=== PATIENT | male | born 1990 | race Caucasian/White ===

== ENCOUNTER 2021-03-12 02:07 | Inpatient (IN) ==
[2021-03-12] MEDS ORDERED: 0.9 % SODIUM CHLORIDE 1,000 ML IV ONE ×2 (02:29)
[2021-03-12] MEDS ORDERED: ONDANSETRON 4 MG/2 ML VIAL IV ONE (02:33)
[2021-03-12 02:53] LABS: POC Calcium, Ionized 1.03 mmEq/L (1.16-1.32); POC Creatinine 0.7 mg/dL (0.6-1.2); POC Potassium 4.1 mEql/L (3.3-5.1)
--- NOTE | 2021-03-12 02:57 | Emergency Department Note ---
HPI General Chief complaint: Blood Sugar Problem Stated complaint: ran out of insulin Time Seen by Provider: 03/12/21 02:11 Source: patient Mode of arrival: EMS Limitations: no limitations History of Present Illness HPI Narrative: Narrative: Patient is a 31-year-old male with history of diabetes who presents with chief complaint of hyperglycemia. Patient states that he ran out of his insulin a few days ago, but not gotten it refilled yet. He has slowly been getting worse throughout the last day with increasing nausea, vomiting, and just not feeling well. He took the last of his Lantus this morning though it was not his full normal dose, and when he was unable to keep anything down this evening came in for further evaluation. Otherwise denies any other significant symptoms such as fever, headache, cough, shortness of breath, chest pain, hematemesis, abdominal pain, changes in bowel movements or urinary symptoms. Patient states this is happened before and he was in DKA. Related Data Home Medications Medication Instructions Recorded Confirmed Humalog U-100 Insulin 0 unit SUBCUT ACHS 03/12/21 03/12/21 insulin glargine 100 unit/mL 0 unit SUBCUT BID 03/12/21 03/12/21 subcutaneous cartridge Allergies Allergy/AdvReac Type Severity Reaction Status Date / Time No Known Drug Allergies Allergy Unverified 03/12/21 02:19 Review of Systems ROS ROS Narrative: Narrative: All systems ED: reviewed and negative except as stated. PFSH Narrative Patient History Narrative: Narrative: Medical/Surgical/Family History All Active Problems (Updated 03/12/21 @ 03:15 by Dutch Grewal DO) DKA (diabetic ketoacidosis) (Acute) Social History Smoking Status: Current every day smoker Exam Narrative Narrative: Narrative: Patient is lying in bed, answering questions normally and appropriately. He does not appear to be in acute distress but does appear to feel unwell. General Limitations: no limitations Head Head: Present atraumatic and normocephalic Eye Eye: Present normal appearance, PERRL and EOMI; Absent scleral icterus or conjunctival injection ENT ENT: Present normal oropharynx and mucous membranes moist Neck Neck: Present full ROM and trachea midline; Absent tenderness or lymphadenopathy Chest Chest: Present symmetric chest wall rise Respiratory Respiratory: Present normal lung sounds bilaterally; Absent respiratory distress, rales/crackles, wheezes, stridor or accessory muscle use Cardiovascular Cardiovascular: Present normal rhythm and tachycardia; Absent systolic murmur or diastolic murmur Adbominal Abdominal: Present soft; Absent tenderness, guarding, rebound, rigidity or mass Extremities Extremities: Absent pedal edema, pretibial edema or calf tenderness Back Back: Absent CVA tenderness (R), CVA tenderness (L) or spinous process tenderness Neurological Neurological: Present alert and oriented X3 Psychiatric Psychiatric: Present normal affect and normal mood Skin Skin: Present warm (WNL) and dry Course Vital Signs Vital signs: Vital Signs Temperature 97.6 F 03/12/21 02:10 Pulse Rate 92 H 03/12/21 02:10 Respiratory Rate 22 03/12/21 02:10 Pulse Oximetry (%) 100 03/12/21 02:10 Temperature 97.6 F 03/12/21 02:10 Pulse Rate 92 H 03/12/21 02:10 Respiratory Rate 22 03/12/21 02:10 Pulse Oximetry (%) 100 03/12/21 02:10 MDM MDM Narrative Medical decision making narrative: Narrative: Patient is a 31-year-old male presented with chief complaint of hyperglycemia. Patient history and physical exam concerning for possible DKA, and it does appear that he is in it. Patient has a pH of 7.25, ketones in his urine, and high blood sugar in the 400s on our initial testing here. This is consistent with DKA, and he was started on 2 L of normal saline bolus, potassium rep lacement, and insulin drip. Patient was also given Zofran to improve his nausea and vomiting symptoms. I discussed with him the findings, as well as my desire to admit him to the hospital for continued close monitoring due to his severe illness. Patient is agreeable to the plan at this time is no further concerns or questions. I did discuss case with hospitalist, who agrees the plan of admission at this time. 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) Follow up with: Herlinda Dunn [Primary Care Provider] - Prescriptions: No Action Lantus U-100 Insulin 100 unit/mL Cartridge 0 unit SUBCUT BID 0RF Rx Instructions: 10 UNITS IN THE A.M. AND 14 UNITS P.M Humalog U-100 Insulin 0 unit subcut ACHS 0RF
[2021-03-12] MEDS ORDERED: INSULIN REGULAR, HUMAN 50 UNIT in 0.9 % SODIUM CHLORIDE 99.5 ML IV SCH (03:00)
[2021-03-12] MEDS ORDERED: POTASSIUM CHLORIDE 40 MEQ in DEXTROSE 5% IN WATER 500 ML IV ONE (03:00)
[2021-03-12] MEDS ORDERED: ONDANSETRON 4 MG/2 ML VIAL IV PRN (03:10)
[2021-03-12] MEDS ORDERED: 0.9 % SODIUM CHLORIDE 1,000 ML IV SCH (03:15)
[2021-03-12] MEDS ORDERED: POTASSIUM CHLORIDE 20 MEQ/10 ML VIAL IV ONE (03:19)
[2021-03-12 03:36] LABS: Basophils # (Auto) 0.14 K/mcL (0.00-0.30); Basophils % (Auto) 0.6 % (0.0-2.0); Eosinophils # (Auto) 0.17 K/mcL (0.00-0.70); Eosinophils % (Auto) 0.8 % (0.0-7.0); Hematocrit 44.3 % (40.1-51.0); Hemoglobin 15.7 g/dL (13.7-17.5); Lymphocytes # (Auto) 3.28 K/mcL (1.50-4.80); Mean Corpuscular HGB Conc 35.4 g/dL (31.0-36.0); Mean Platelet Volume 11.3 fL (7.4-10.4); Monocytes # (Auto) 1.35 K/mcL (0.10-0.90); Monocytes % (Auto) 6.2 % (1.0-12.0); Neutrophils % (Auto) 77.4 % (38.0-78.0); Platelet Count 226 K/mcL (140-440); RBC 4.87 M/mcL (4.63-6.08); Red Cell Distribution Width 11.1 % (11.5-14.5); WBC 21.8 K/mcL (4.5-11.0)
[2021-03-12] MEDS ORDERED: INSULIN REGULAR, HUMAN 1 UNIT/0.01 ML UNIT IV ONE (03:46)
[2021-03-12 03:48] LABS: ALT/SGPT 95 U/L (<40); AST/SGOT 57 U/L (<40); Albumin 4.6 gm/dL (3.2-5.2); Albumin/Globulin Ratio 1.9 (1.0-2.3); Alkaline Phosphatase 72 U/L (39-117); Beta Hydroxybutyrate 4.06 mmol/L (<0.27); Bilirubin,Total 0.8 mg/dL (0.1-1.0); Blood Urea Nitrogen 19 mg/dL (6-20); Calcium 8.8 mg/dL (8.6-10.4); Carbon Dioxide 13 mmol/L (22-30); Chloride 93 mmol/L (96-108); Globulin 2.4 gm/dL (2.2-3.7); Glomerular Filtration Rate 113; Glucose 408 mg/dL (70-105)
[2021-03-12] MEDS ORDERED: ACETAMINOPHEN 325 MG TABLET PO PRN (03:58)
[2021-03-12] MEDS ORDERED: PROMETHAZINE 25 MG/ML VIAL IV PRN (03:58)
--- NOTE | 2021-03-12 04:09 | Internal Med History&Physical ---
HPI History of Present Illness Patient information: Note initiated : 03/12/21 at 4:09 am Service Date, if different from initiated Date: [] Patient: Chet Hernandez a 31 y/o M admitted on for ran out of insulin. Chief Complaint: [DKA] Chief complaint: ran out of insulin History of present illness: Mr. Hernandez is a 31 year old M history of type 1 diabetes mellitus, presenting with general body weakness, nausea, vomiting, admits to ran out of insulin for 2 days. No prior recent similar episode. He is supposed to take insulin Lantus 10 units in the morning and 14 units at bedtime, in addition to Humalog mealtime insulin sliding scale. He ran out of his insulin for the past 2 days. Is currently complaining of general body weakness, nausea, vomiting. He denies any abdominal pain. Vital signs at ED presentation significant for tachycardia with heart rate in the 110s beats per minute. Labs significant for serum glucose level 408. Serum bicarb 13. Positive for serum ketone. Serum anion gap 25. Constitutional Constitutional: Present weakness; Absent chills, excessive sweating, fatigue or fever(s) EENT Eyes: Absent blurry vision, change in vision, loss of vision or other visual disturbances Ears: Absent decreased hearing or tinnitus Nose, mouth and throat: Absent abnormal hearing, dry mouth, headache(s), nasal congestion or sore throat Cardiovascular Cardiovascular: Absent chest pain, chest pain at rest, edema, irregular heart rhythm or palpatations Respiratory Respiratory: Absent cough, dyspnea or wheezing Gastrointestinal Gastrointestinal: Present nausea and vomiting; Absent abdominal pain, constipation or diarrhea Musculoskeletal Musculoskeletal: Absent back pain, deformity, limited range of motion, muscle cramps, muscle weakness or numbness Integumentary Integumentary: Absent lesions, rash or wounds Neurological Neurological: Absent focal weakness, headache(s) or numbness Psychiatric Psychiatric: Absent anxiety, depression or hallucinations PFSH PFSH All Active Problems (Updated 03/12/21 @ 04:13 by Ermias Ferguson MD) DKA, type 1 (Acute) Cigarette smoker (Acute) DKA (diabetic ketoacidosis) (Acute) MEDS/ALLERGIES Home Medications and Allergies Home Medications Medication Instructions Recorded Confirmed Type Humalog U-100 Insulin 0 unit SUBCUT ACHS 03/12/21 03/12/21 History insulin glargine 100 unit/mL 0 unit SUBCUT BID 03/12/21 03/12/21 History subcutaneous cartridge Allergies Allergy/AdvReac Type Severity Reaction Status Date / Time No Known Drug Allergies Allergy Unverified 03/12/21 02:19 EXAM Constitutional Vitals: Temp Pulse Resp BP Pulse Ox 36.4 C 111 H 22 149/88 99 03/12/21 02:10 03/12/21 02:31 03/12/21 02:10 03/12/21 02:31 03/12/21 02:31 General appearance: average body habitus, cooperative, disheveled and mild distress Head Head exam: Present atraumatic and normocephalic Eye Eye exam: Present EOMI and PERRL ENT ENT exam: Present mucous membranes moist, normal exam and normal external ear exam Neck Neck exam: Present normal inspection; Absent lymphadenopathy, tenderness or thyromegaly Respiratory Respiratory exam: Absent accessory muscle use, respiratory distress or wheezes Cardiovascular Cardiovascular exam: Present normal rate and rhythm; Absent JVD GI/Abdominal GI/Abdominal exam: Present normal bowel sounds and soft; Absent organomegaly or tenderness Rectal Rectal exam: Present deferred Extremities Exam Extremities exam: Present full ROM, normal capillary refill and normal inspection; Absent tenderness Neurological Exam Neurological exam: Present alert, CN II-XII intact and oriented X3; Absent motor sensory deficit Psychiatric Psychiatric exam: Present normal affect and normal mood; Absent anxious or depressed Skin Skin exam: Present dry and intact DATA Data Completed and Pending Labs: Labs from last 24 hours 03/12/21 03/12/21 03/12/21 02:40 02:40 02:40 WBC 21.8 H RBC 4.87 Hgb 15.7 Hct 44.3 POC Hct MCV 91.0 MCH 32.2 MCHC 35.4 RDW 11.1 L Plt Count 226 MPV 11.3 H Neut % (Auto) 77.4 Lymph % (Auto) 15.0 L [place] % (Auto) 6.2 Eos % (Auto) 0.8 Baso % (Auto) 0.6 Lymph # (Auto) 3.28 [place] # (Auto) 1.35 H Eos # (Auto) 0.17 Baso # (Auto) 0.14 Absolute Neutrophils 16.88 H POC Sodium Sodium 131 L POC Potassium Potassium 4.3 POC Chloride Chloride 93 L Carbon Dioxide 13 L POC Total CO2 Anion Gap 25.0 H POC BUN BUN 19 Creatinine 0.9 POC Creatinine GFR Calculation 113 Glucose 408 H POC Glucose Calcium 8.8 POC WB Ioniz Calcium Total Bilirubin 0.8 AST 57 H ALT 95 H Alkaline Phosphatase 72 Total Protein 7.0 Albumin 4.6 Globulin 2.4 Albumin/Globulin Ratio 1.9 Beta-Hydroxybutyrate 4.06 H 03/12/21 02:40 WBC RBC Hgb Hct POC Hct 48 MCV MCH MCHC RDW Plt Count MPV Neut % (Auto) Lymph % (Auto) [place] % (Auto) Eos % (Auto) Baso % (Auto) Lymph # (Auto) [place] # (Auto) Eos # (Auto) Baso # (Auto) Absolute Neutrophils POC Sodium 132 L Sodium POC Potassium 4.1 Potassium POC Chloride 101 Chloride Carbon Dioxide POC Total CO2 17 L Anion Gap POC BUN 26 H BUN Creatinine POC Creatinine 0.7 GFR Calculation Glucose POC Glucose 406 H Calcium POC WB Ioniz Calcium 1.03 L Total Bilirubin AST ALT Alkaline Phosphatase Total Protein Albumin Globulin Albumin/Globulin Ratio Beta-Hydroxybutyrate A/P Assessment and plan (1) Cigarette smoker: Status: Acute (2) DKA, type 1: Status: Acute Narrative A/P Narrative: Assessment and Plans: 1. 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 Current cigarette smoker: Nicotine replacement therapy GI ppx: not currently indicated DVT ppx: Lovenox Code status: Full Prognosis: guarded Disposition: inpatient ICU Critical Care Time: 1hr Time Spent With Patient Time: Total time spent is greater than 50% in coordination of care (as documented) at patient's floor/unit and/or counseling patient: Total time spent with greater than 50% in coordination of care (as documented) at patient's floor/unit and/or counseling patient:: Greater than 35 minutes
[2021-03-12] MEDS: NACL 0.9% W/KCL 20MEQ 1,000 ML IV SCH ×3 (05:08→13:52)
[2021-03-12] MEDS: 0.9 % SODIUM CHLORIDE 10 ML SYRINGE IV SCH ×5 (05:59→22:26)
[2021-03-12 06:27] LABS: Basophils % (Auto) 0.4 % (0.0-2.0); Eosinophils # (Auto) 0.02 K/mcL (0.00-0.70); Eosinophils % (Auto) 0.1 % (0.0-7.0); Hematocrit 38.9 % (40.1-51.0); Hemoglobin 13.3 g/dL (13.7-17.5); Lymphocytes # (Auto) 1.11 K/mcL (1.50-4.80); Lymphocytes % (Auto) 4.6 % (15.5-49.0); Mean Cell Volume 91.1 fL (80.0-100.0); Mean Corpuscular HGB Conc 34.2 g/dL (31.0-36.0); Mean Platelet Volume 10.3 fL (7.4-10.4); Monocytes # (Auto) 1.33 K/mcL (0.10-0.90); Monocytes % (Auto) 5.5 % (1.0-12.0); Neutrophils % (Auto) 89.4 % (38.0-78.0); Platelet Count 227 K/mcL (140-440); RBC 4.27 M/mcL (4.63-6.08); Red Cell Distribution Width 11.4 % (11.5-14.5); WBC 24.2 K/mcL (4.5-11.0)
[2021-03-12] MEDS: DEXTROSE 5%-1/2NS W/20MEQ KCL 1,000 ML IV SCH ×4 (06:30→16:21)
[2021-03-12 06:51] LABS: Estimated Average Glucose(eAG) 192 mg/dL; Hemoglobin A1C 8.3 % Hgb (4.0-6.0)
[2021-03-12 07:03] LABS: ALT/SGPT 77 U/L (<40); AST/SGOT 41 U/L (<40); Albumin 3.9 gm/dL (3.2-5.2); Albumin/Globulin Ratio 1.8 (1.0-2.3); Alkaline Phosphatase 60 U/L (39-117); Bilirubin,Total 0.5 mg/dL (0.1-1.0); Blood Urea Nitrogen 19 mg/dL (6-20); Calcium 8.1 mg/dL (8.6-10.4); Carbon Dioxide 15 mmol/L (22-30); Chloride 103 mmol/L (96-108); Globulin 2.2 gm/dL (2.2-3.7); Glomerular Filtration Rate 113; Glucose 245 mg/dL (70-105)
[2021-03-12] MEDS ORDERED: 0.9 % SODIUM CHLORIDE 250 ML IV SCH (08:15)
[2021-03-12] MEDS: DOCUSATE SODIUM 100 MG CAPSULE PO SCH ×2 (08:36→22:25)
[2021-03-12] MEDS ORDERED: SENNOSIDES 8.8 MG/5 ML ML PT SCH (09:00)
[2021-03-12] MEDS ORDERED: ENOXAPARIN 40 MG/0.4 ML SYRINGE SQ SCH (09:00)
[2021-03-12] MEDS ORDERED: NICOTINE 21 MG PATCH TOPICAL SCH (10:00)
[2021-03-12 11:13] LABS: Blood Urea Nitrogen 16 mg/dL (6-20); Calcium 8.1 mg/dL (8.6-10.4); Carbon Dioxide 18 mmol/L (22-30); Chloride 103 mmol/L (96-108); Glomerular Filtration Rate 119; Glucose 204 mg/dL (70-105)
[2021-03-12 15:50] LABS: Blood Urea Nitrogen 12 mg/dL (6-20); Calcium 8.4 mg/dL (8.6-10.4); Carbon Dioxide 22 mmol/L (22-30); Chloride 102 mmol/L (96-108); Glomerular Filtration Rate 119; Glucose 230 mg/dL (70-105)
[2021-03-12] MEDS: INSULIN GLARGINE, HUMAN 1 UNIT/0.01 ML SQ SCH ×2 (16:10→22:26)
[2021-03-12] MEDS ORDERED: DEXTROSE 31 GM ORAL.SUSP PO PRN (16:17)
[2021-03-12] MEDS ORDERED: DEXTROSE 50% 50 ML VIAL IV PRN (16:17)
[2021-03-12 17:07] LABS: Blood Urea Nitrogen 11 mg/dL (6-20); Calcium 8.1 mg/dL (8.6-10.4); Carbon Dioxide 21 mmol/L (22-30); Chloride 107 mmol/L (96-108); Glomerular Filtration Rate 126; Glucose 126 mg/dL (70-105)
[2021-03-12] MEDS: INSULIN LISPRO 1 UNIT/0.01 ML UNIT SQ SCH ×2 (17:43→22:26)
[2021-03-12] MEDS ORDERED: SENNOSIDES/DOCUSATE SODIUM 1 TAB TABLET PO SCH (21:00)
--- NOTE | 2021-03-13 08:34 | Discharge Summary ---
Discharge Provider Provider Patient information: Note initiated : 03/13/21 at 8:33 am Service Date, if different from initiated Date: [] Patient: Chet Hernandez 31 y/o M admitted on 03/12/21 for Ran Out Of Insulin. Chief Complaint: [] Date of admission: 03/12/21 04:19 Discharge date: 03/12/21 Primary care physician: Herlinda Dunn Attending physician on admission: Ermias Ferguson Consults: 03/12/21 Consult to Physician [CONS] Stat Comment: Consulting Provider: Ermias Ferguson Reason For Exam: Physician to Consult Attending physician on discharge: Ermias Glover Pui Discharge Meds Discharge Medications Home Medications Humalog U-100 Insulin 0 unit SUBCUT ACHS 03/12/21 [History Confirmed 03/12/21 Last Taken 03/11/21 08:00] insulin glargine 100 unit/mL subcutaneous cartridge 0 unit SUBCUT BID 03/12/21 [History Confirmed 03/12/21 Last Taken 03/11/21] COURSE Hospital Course Hospital course: Admitted on 03/12 for DKA. Left AMA the same day. Discharge diagnosis: DKA Time Spent with Patient Time attestation: Total time spent providing and/or coordinating discharge services: Time spent: Greater than 30 minutes EXAM Constitutional Vitals: Temp Pulse Resp BP Pulse Ox 37.5 C H 71 21 121/67 99 03/12/21 20:00 03/12/21 20:00 03/12/21 20:00 03/12/21 20:00 03/12/21 20:00 General appearance: cooperative and no acute distress Head Head exam: Present atraumatic and normocephalic Eye Eye exam: Present EOMI and PERRL ENT ENT exam: Present mucous membranes moist, normal exam and normal external ear exam Neck Neck exam: Present normal inspection; Absent lymphadenopathy, tenderness or thyromegaly Respiratory Respiratory exam: Absent accessory muscle use, respiratory distress or wheezes Cardiovascular Cardiovascular exam: Present normal rate and rhythm; Absent JVD GI/Abdominal GI/Abdominal exam: Present normal bowel sounds and soft; Absent organomegaly or tenderness Rectal Rectal exam: Present deferred Extremities Exam Extremities exam: Present full ROM, normal capillary refill and normal inspection; Absent tenderness Neurological Exam Neurological exam: Present alert, CN II-XII intact and oriented X3; Absent motor sensory deficit Psychiatric Psychiatric exam: Present normal affect and normal mood; Absent anxious or depressed Skin Skin exam: Present dry and intact Discharge Data Data Completed and Pending Labs on day of discharge: Labs from last 24 hours 03/12/21 03/12/21 03/12/21 16:03 12:28 07:58 Sodium 138 135 136 Potassium 4.1 4.4 4.6 Chloride 107 102 103 Carbon Dioxide 21 L 22 18 L Anion Gap 10.0 11.0 15.0 BUN 11 12 16 Creatinine 0.7 0.8 0.8 GFR Calculation 126 119 119 Glucose 126 H 230 H 204 H Calcium 8.1 L 8.4 L 8.1 L Discharge Plan Patient/Caregiver Discharge Instructions Activity: increase activity as tolerated Diet: Consistent Carbohydrate Prescriptions: Continued insulin glargine 100 unit/mL Cartridge 0 unit SUBCUT BID 0RF Rx Instructions: 10 UNITS IN THE A.M. AND 14 UNITS P.M Humalog U-100 Insulin 0 unit subcut ACHS 0RF Follow Up Plan Follow up with: Herlinda Dunn [Primary Care Provider] - Patient Disposition: Left Against Medical Advice Prognosis: Good Rehab Potential: Good I certify that the patient requires SNF services: No Overall status at discharge: patient is progressing back to baseline Discharge Orders: Discharge Order (Routine); Ordered 03/12/21 Ordered By: Ermias Ferguson Discharge Comment: Patient walked home QUALITY VTE Deep Vein Thrombosis/Pulmonary Embolism Present on Admission: No
[2021-03-13] MEDS ORDERED: INSULIN GLARGINE, HUMAN 1 UNIT/0.01 ML SQ SCH (09:00)
== END 2021-03-12 21:40 | disposition left against medical advice (07) | DRG 639 ==
LOC: ED 02:07 → ICU 04:14
PROVIDERS: ADMIT Internal Medicine; ATTEND Internal Medicine

== ENCOUNTER 2024-01-24 10:11 | Inpatient (IN) ==
[2024-01-24] MEDS ORDERED: IOPAMIDOL 100 ML BOTTLE IV ONE (10:12)
[2024-01-24] MEDS: LACTATED RINGERS 1,000 ML IV ONE ×2 (10:31→12:18)
[2024-01-24] MEDS: ONDANSETRON 4 MG/2 ML VIAL IV ONE ×2 (10:31→12:18)
[2024-01-24 10:40] LABS: Basophils # (Auto) 0.08 K/mcL (0.00-0.30); Basophils % (Auto) 0.9 % (0.0-2.0); Eosinophils % (Auto) 2.2 % (0.0-7.0); Hematocrit 44.7 % (40.1-51.0); Hemoglobin 14.6 g/dL (13.7-17.5); Lymphocytes # (Auto) 2.35 K/mcL (1.50-4.80); Lymphocytes % (Auto) 25.4 % (15.5-49.0); Mean Corpuscular HGB Conc 32.7 g/dL (31.0-36.0); Monocytes # (Auto) 0.75 K/mcL (0.10-0.90); Monocytes % (Auto) 8.1 % (1.0-12.0); Neutrophils % (Auto) 62.3 % (38.0-78.0); Platelet Count 278 K/mcL (140-440); RBC 4.56 M/mcL (4.63-6.08); WBC 9.3 K/mcL (4.5-11.0)
[2024-01-24] MEDS: INSULIN REGULAR, HUMAN 1 UNIT/0.01 ML UNIT IV ONE ×3 (11:08→17:31)
[2024-01-24 11:13] LABS: ALT/SGPT 575 U/L (<40); AST/SGOT 255 U/L (<40); Albumin 4.1 gm/dL (3.2-5.2); Albumin/Globulin Ratio 1.4 (1.0-2.3); Alkaline Phosphatase 239 U/L (39-117); Bilirubin,Total 0.3 mg/dL (0.1-1.0); Blood Urea Nitrogen 23 mg/dL (6-20); Calcium 8.8 mg/dL (8.6-10.4); Carbon Dioxide 7 mmol/L (22-30); Chloride 90 mmol/L (96-108); Glomerular Filtration Rate 111; Glucose 556 mg/dL (70-105); Sodium 130 mmol/L (133-145)
[2024-01-24 12:56] LABS: Appearance,Urine Clear (Clear); Bilirubin,Urine Negative (Negative); Color,Urine Yellow; Glucose,Urine (UA) 500 mg/dL (Negative); Ketones,Urine >=160 mg/dL (Negative); Leukocyte Esterase,Urine Negative /uL (Negative); Nitrate,Urine Negative (Negative); PH,Urine 5.5 (5.0-9.0); Protein,Urine Negative (Negative); Specific Gravity,Urine 1.025 (1.000-1.035); Urine Blood Negative ery/mcL (Negative); Urine RBC 0 /hpf (0-3); Urine Squamous Epithelial Cell 0 /hpf (0-4); Urine WBC 0 /hpf (0-4); Urobilinogen,Urine Normal
[2024-01-24 14:24] LABS: ALT/SGPT 514 U/L (<40); AST/SGOT 200 U/L (<40); Albumin 3.9 gm/dL (3.2-5.2); Albumin/Globulin Ratio 1.4 (1.0-2.3); Alkaline Phosphatase 222 U/L (39-117); Bilirubin,Total 0.2 mg/dL (0.1-1.0); Blood Urea Nitrogen 19 mg/dL (6-20); Calcium 8.5 mg/dL (8.6-10.4); Carbon Dioxide 8 mmol/L (22-30); Chloride 92 mmol/L (96-108); Globulin 2.8 gm/dL (2.2-3.7); Glomerular Filtration Rate 117; Glucose 422 mg/dL (70-105); Potassium 4.9 mmol/L (3.3-5.1); Sodium 129 mmol/L (133-145)
[2024-01-24] MEDS: MAG HYDROX/AL HYDROX/SIMETH 30 ML ORAL.SUSP PO ONE (14:34)
[2024-01-24 15:10] LABS: Phosphorous 3.8 mg/dL (2.5-4.5)
[2024-01-24] MEDS: INSULIN REGULAR, HUMAN 50 UNIT in 0.9 % SODIUM CHLORIDE 99.5 ML IV SCH (15:20)
[2024-01-24] MEDS ORDERED: POTASSIUM CHLORIDE 40 MEQ in DEXTROSE 5% IN WATER 500 ML IV PRN (15:49)
[2024-01-24] MEDS ORDERED: MAGNESIUM SULFATE 2 GM/50 ML BAG IV PRN (15:49)
[2024-01-24] MEDS ORDERED: METOCLOPRAMIDE 10 MG/2 ML VIAL IV PRN (15:49)
[2024-01-24] MEDS ORDERED: SENNOSIDES 1 TABLET PO PRN (15:49)
[2024-01-24] MEDS ORDERED: POLYETHYLENE GLYCOL 3350 17 GM PACKET PO PRN (15:49)
[2024-01-24] MEDS ORDERED: ONDANSETRON 4 MG/2 ML VIAL IV PRN (15:49)
[2024-01-24] MEDS ORDERED: IPRATROPIUM/ALBUTEROL 3 ML AMPUL.NEB NEB PRN (15:49)
[2024-01-24] MEDS ORDERED: POTASSIUM CHLORIDE 20 MEQ TABLET PO PRN (15:49)
[2024-01-24] MEDS ORDERED: ACETAMINOPHEN 325 MG TABLET PO PRN (15:52)
[2024-01-24 16:00] LABS: Amphetamine Screen,Urine Suspect positive; Barbiturate Screen,Urine None detected; Benzodiazepines Screen,Urine None detected; Cannabinoid Screen,Urine None detected; Cocaine Screen,Urine None detected; Fentanyl, Urine Screen None Detected; Opiate Screen,Urine None detected; Oxycodone, Urine Screen None detected; Phencyclidine Screen,Urine None detected
[2024-01-24] MEDS: 0.9 % SODIUM CHLORIDE 1,000 ML IV SCH (16:04)
[2024-01-24 16:29] LABS: Hemoglobin A1C 13.5 % Hgb (4.0-6.0)
[2024-01-24] MEDS: INSULIN REGULAR, HUMAN 1 UNIT/0.01 ML UNIT ONE (16:42)
[2024-01-24] MEDS: DEXTROSE 5%-1/2NS 1,000 ML IV SCH ×2 (18:05→22:09)
[2024-01-24] MEDS: 0.9 % SODIUM CHLORIDE 250 ML IV SCH (18:06)
[2024-01-24] MEDS ORDERED: DEXTROSE 50% 50 ML VIAL IV PRN (20:11)
[2024-01-24] MEDS: DEXTROSE 50% 50 ML SYRINGE IV ONE (20:19)
[2024-01-25 06:28] LABS: ALT/SGPT 358 U/L (<40); AST/SGOT 114 U/L (<40); Albumin 3.3 gm/dL (3.2-5.2); Albumin/Globulin Ratio 1.4 (1.0-2.3); Alkaline Phosphatase 176 U/L (39-117); Bilirubin,Direct < 0.2 mg/dL (0-0.3); Bilirubin,Total 0.2 mg/dL (0.1-1.0); Blood Urea Nitrogen 12 mg/dL (6-20); Calcium 8.2 mg/dL (8.6-10.4); Carbon Dioxide 18 mmol/L (22-30); Chloride 105 mmol/L (96-108); Globulin 2.4 gm/dL (2.2-3.7); Glomerular Filtration Rate 123; Glucose 138 mg/dL (70-105); Lactate Dehydrogenase 163 U/L (135-225); Phosphorous 1.9 mg/dL (2.5-4.5); Potassium 3.3 mmol/L (3.3-5.1); Sodium 135 mmol/L (133-145); Triglycerides 207 mg/dL (<150); Uric Acid 5.6 mg/dL (2.5-8.0)
[2024-01-25] MEDS: DEXTROSE 50% 50 ML SYRINGE IV ONE (06:31)
[2024-01-25 06:37] LABS: Beta Hydroxybutyrate 0.44 mmol/L (<0.27)
[2024-01-25] MEDS: POTASSIUM CHLORIDE 20 MEQ TABLET PO PRN (07:57)
[2024-01-25] MEDS ORDERED: DEXTROSE 50% 50 ML VIAL IV PRN (08:22)
[2024-01-25] MEDS ORDERED: DEXTROSE 31 GM ORAL.SUSP PO PRN (08:22)
[2024-01-25] MEDS: INSULIN GLARGINE, HUMAN 1 UNIT/0.01 ML SQ SCH (08:42)
[2024-01-25] MEDS: NEUTRA PHOS 1 PACKET PO SCH (08:43)
[2024-01-25] MEDS: ENOXAPARIN 40 MG/0.4 ML SYRINGE SQ SCH (08:43)
[2024-01-25] MEDS: PHOSPHORUS 250 MG TABLET PO SCH (08:43)
[2024-01-25] MEDS: SODIUM BICARBONATE 650 MG TABLET PO SCH (08:43)
[2024-01-25] MEDS: INSULIN LISPRO 1 UNIT/0.01 ML UNIT SQ SCH (12:02)
[2024-01-30 07:12] LABS: Amphetamine Screen Negative (Cutoff=500)
== END 2024-01-25 15:00 | disposition left against medical advice (07) | DRG 637 ==
LOC: ED 10:11 → ICU 15:45
PROVIDERS: ADMIT Internal Medicine; ATTEND Internal Medicine

== ENCOUNTER 2024-06-05 13:56 | Inpatient (IN) ==
[2024-06-05] MEDS: ONDANSETRON 4 MG/2 ML VIAL IV ONE (14:50)
[2024-06-05 14:51] LABS: Basophils # (Auto) 0.07 K/mcL (0.00-0.30); Basophils % (Auto) 0.5 % (0.0-2.0); Eosinophils # (Auto) 0.01 K/mcL (0.00-0.70); Eosinophils % (Auto) 0.1 % (0.0-7.0); Hematocrit 51.6 % (40.1-51.0); Hemoglobin 16.8 g/dL (13.7-17.5); Lymphocytes # (Auto) 1.38 K/mcL (1.50-4.80); Lymphocytes % (Auto) 9.4 % (15.5-49.0); Mean Corpuscular HGB Conc 32.6 g/dL (31.0-36.0); Mean Platelet Volume 9.5 fL (8.8-12.5); Monocytes # (Auto) 0.62 K/mcL (0.10-0.90); Monocytes % (Auto) 4.2 % (1.0-12.0); Neutrophils % (Auto) 83.3 % (38.0-78.0); Platelet Count 343 K/mcL (140-440); RBC 5.16 M/mcL (4.63-6.08); Red Cell Distribution Width 13.1 % (11.5-14.5); WBC 14.7 K/mcL (4.5-11.0)
[2024-06-05 15:08] LABS: Alcohol, Blood < 10.1 mg/dL; Alcohol,Blood < 0.010 gm/dL (<0.010)
[2024-06-05 15:10] LABS: ALT/SGPT 302 U/L (<40); AST/SGOT 75 U/L (<40); Albumin 4.6 gm/dL (3.2-5.2); Albumin/Globulin Ratio 1.2 (1.0-2.3); Alkaline Phosphatase 253 U/L (39-117); Bilirubin,Total 0.3 mg/dL (0.1-1.0); Blood Urea Nitrogen 16 mg/dL (6-20); Calcium 9.9 mg/dL (8.6-10.4); Carbon Dioxide 5 mmol/L (22-30); Chloride 91 mmol/L (96-108); Globulin 3.8 gm/dL (2.2-3.7); Glomerular Filtration Rate 87; Glucose 482 mg/dL (70-105); Potassium 4.6 mmol/L (3.3-5.1); Sodium 135 mmol/L (133-145)
[2024-06-05] MEDS: LACTATED RINGERS 2,000 ML IV ONE (15:10)
[2024-06-05] MEDS: POTASSIUM CHLORIDE 20 MEQ TABLET PO ONE (15:48)
[2024-06-05 15:49] LABS: Appearance,Urine CLEAR (Clear); Bilirubin,Urine Negative (Negative); Color,Urine STRAW; Glucose,Urine (UA) >=500 mg/dL (Negative); Ketones,Urine 80 mg/dL (Negative); Leukocyte Esterase,Urine Negative /uL (Negative); Mucus,Urine FEW /hpf; Nitrate,Urine Negative (Negative); Protein,Urine Negative (Negative); Specific Gravity,Urine 1.025 (1.000-1.035); Urine Blood Negative (Negative); Urine RBC 0 /hpf (0-3); Urine Squamous Epithelial Cell < 1 /hpf (0-4); Urine WBC 1 /hpf (0-4); Urobilinogen,Urine Negative
[2024-06-05] MEDS: LACTATED RINGERS 1,000 ML IV SCH (16:02)
[2024-06-05 16:17] LABS: Amphetamine Screen,Urine Suspect positive; Barbiturate Screen,Urine None detected; Benzodiazepines Screen,Urine None detected; Cannabinoid Screen,Urine Suspect Positive; Cocaine Screen,Urine None detected; Fentanyl, Urine Screen None Detected; Opiate Screen,Urine None detected; Oxycodone, Urine Screen None detected; Phencyclidine Screen,Urine None detected
[2024-06-05] MEDS: INSULIN REGULAR, HUMAN 50 UNIT in 0.9 % SODIUM CHLORIDE 99.5 ML IV SCH (16:19)
[2024-06-05 16:22] LABS: Beta Hydroxybutyrate 10.4 mmol/L (<0.27)
[2024-06-05] MEDS: DEXTROSE 5%-LR 1,000 ML IV SCH (16:33)
[2024-06-05 17:26] LABS: Blood Urea Nitrogen 13 mg/dL (6-20); Calcium 9.1 mg/dL (8.6-10.4); Carbon Dioxide 13 mmol/L (22-30); Chloride 100 mmol/L (96-108); Glomerular Filtration Rate 111; Glucose 215 mg/dL (70-105); Potassium 4.2 mmol/L (3.3-5.1); Sodium 137 mmol/L (133-145)
[2024-06-05] MEDS ORDERED: PROMETHAZINE 25 MG/ML VIAL IV PRN (18:34)
[2024-06-05] MEDS ORDERED: INSULIN REGULAR, HUMAN 50 UNIT in 0.9 % SODIUM CHLORIDE 100 ML IV SCH (18:34)
[2024-06-05] MEDS ORDERED: ONDANSETRON 4 MG/2 ML VIAL IV PRN (18:34)
[2024-06-05] MEDS: DEXTROSE 50% 50 ML SYRINGE IV ONE ×3 (18:38→23:04)
[2024-06-05] MEDS: INSULIN GLARGINE, HUMAN 1 UNIT/0.01 ML SQ SCH (18:39)
[2024-06-05] MEDS: DEXTROSE 5%-1/2NS W/10MEQ KCL 1,000 ML IV SCH ×2 (18:41→19:50)
[2024-06-05] MEDS: 0.9 % SODIUM CHLORIDE 250 ML IV SCH (18:46)
[2024-06-05] MEDS: INSULIN GLARGINE, HUMAN 1 UNIT/0.01 ML SQ ONE (18:50)
[2024-06-05] MEDS: DEXTROSE 5%-1/2NS W/20MEQ KCL 1,000 ML IV SCH (19:03)
[2024-06-05] MEDS: POTASSIUM CHLORIDE 10 MEQ/100 ML BAG IV ONE (19:47)
[2024-06-05] MEDS: INSULIN LISPRO 1 UNIT/0.01 ML UNIT SQ SCH (21:20)
[2024-06-05] MEDS: 0.9 % SODIUM CHLORIDE 10 ML SYRINGE IV SCH (21:21)
[2024-06-05 21:27] LABS: Blood Urea Nitrogen 10 mg/dL (6-20); Calcium 8.5 mg/dL (8.6-10.4); Carbon Dioxide 20 mmol/L (22-30); Chloride 105 mmol/L (96-108); Glomerular Filtration Rate 116; Glucose 119 mg/dL (70-105); Potassium 3.9 mmol/L (3.3-5.1); Sodium 138 mmol/L (133-145)
[2024-06-05] MEDS: DEXTROSE 50% 50 ML VIAL IV PRN (21:38)
[2024-06-05] MEDS: DEXTROSE 5%-1/2NS W/30MEQ KCL 1,000 ML IV SCH (21:48)
[2024-06-06] MEDS: DEXTROSE 50% 50 ML SYRINGE IV ONE ×5 (00:21→06:13)
[2024-06-06 01:55] LABS: Blood Urea Nitrogen 9 mg/dL (6-20); Calcium 8.4 mg/dL (8.6-10.4); Carbon Dioxide 22 mmol/L (22-30); Chloride 104 mmol/L (96-108); Glomerular Filtration Rate 116; Glucose 247 mg/dL (70-105); Potassium 4.4 mmol/L (3.3-5.1); Sodium 135 mmol/L (133-145)
[2024-06-06 06:25] LABS: Basophils # (Auto) 0.09 K/mcL (0.00-0.30); Basophils % (Auto) 0.8 % (0.0-2.0); Eosinophils # (Auto) 0.19 K/mcL (0.00-0.70); Eosinophils % (Auto) 1.7 % (0.0-7.0); Hematocrit 34.8 % (40.1-51.0); Hemoglobin 11.7 g/dL (13.7-17.5); Lymphocytes # (Auto) 3.17 K/mcL (1.50-4.80); Lymphocytes % (Auto) 28.5 % (15.5-49.0); Mean Cell Volume 97.2 fL (80.0-100.0); Mean Corpuscular HGB Conc 33.6 g/dL (31.0-36.0); Mean Platelet Volume 9.5 fL (8.8-12.5); Monocytes # (Auto) 1.11 K/mcL (0.10-0.90); Neutrophils % (Auto) 57.4 % (38.0-78.0); Platelet Count 295 K/mcL (140-440); RBC 3.58 M/mcL (4.63-6.08); Red Cell Distribution Width 13.4 % (11.5-14.5); WBC 11.1 K/mcL (4.5-11.0)
[2024-06-06 06:33] LABS: ALT/SGPT 163 U/L (<40); AST/SGOT 38 U/L (<40); Albumin 3.1 gm/dL (3.2-5.2); Albumin/Globulin Ratio 1.5 (1.0-2.3); Alkaline Phosphatase 142 U/L (39-117); Bilirubin,Direct 0.2 mg/dL (<0.3); Bilirubin,Total 0.4 mg/dL (0.1-1.0); Blood Urea Nitrogen 8 mg/dL (6-20); Calcium 8.3 mg/dL (8.6-10.4); Carbon Dioxide 19 mmol/L (22-30); Chloride 105 mmol/L (96-108); Globulin 2.1 gm/dL (2.2-3.7); Glomerular Filtration Rate 123; Glucose 148 mg/dL (70-105); Lactate Dehydrogenase 159 U/L (135-225); Phosphorous 2.3 mg/dL (2.5-4.5); Potassium 3.9 mmol/L (3.3-5.1); Sodium 136 mmol/L (133-145); Triglycerides 125 mg/dL (<150); Uric Acid 4.5 mg/dL (2.5-8.0)
[2024-06-06] MEDS: DEXTROSE 5%-1/2NS W/30MEQ KCL 1,000 ML IV SCH (07:39)
[2024-06-06] MEDS: POTASSIUM PHOSPHATE 20 MEQ in DEXTROSE 5% IN WATER 250 ML IV ONE (08:10)
[2024-06-06] MEDS ORDERED: DEXTROSE 50% 50 ML SYRINGE IV PRN (08:28)
[2024-06-06] MEDS ORDERED: INSULIN GLARGINE, HUMAN 1 UNIT/0.01 ML SQ SCH (09:00)
[2024-06-06 09:28] LABS: Blood Urea Nitrogen 7 mg/dL (6-20); Calcium 8.9 mg/dL (8.6-10.4); Carbon Dioxide 21 mmol/L (22-30); Chloride 104 mmol/L (96-108); Glomerular Filtration Rate 123; Glucose 99 mg/dL (70-105); Potassium 4.3 mmol/L (3.3-5.1); Sodium 137 mmol/L (133-145)
[2024-06-06] MEDS: INSULIN GLARGINE, HUMAN 1 UNIT/0.01 ML SQ SCH (09:31)
[2024-06-06] MEDS: ENOXAPARIN 40 MG/0.4 ML SYRINGE SQ SCH (09:31)
[2024-06-06 13:13] LABS: Blood Urea Nitrogen 9 mg/dL (6-20); Calcium 8.5 mg/dL (8.6-10.4); Carbon Dioxide 18 mmol/L (22-30); Chloride 101 mmol/L (96-108); Glomerular Filtration Rate 116; Glucose 213 mg/dL (70-105); Potassium 3.7 mmol/L (3.3-5.1); Sodium 134 mmol/L (133-145)
[2024-06-06] MEDS: LACTATED RINGERS 1,000 ML IV SCH (14:00)
[2024-06-06] MEDS: NICOTINE POLACRILEX 2 MG GUM CHEW/PARK PRN (14:50)
[2024-06-06] MEDS: ACETAMINOPHEN 1,000 MG/100 ML BAG IV PRN (14:50)
[2024-06-06] MEDS: oxyCODONE IR 5 MG TABLET PO PRN (17:16)
[2024-06-06] MEDS: DEXTROSE 31 GM ORAL.SUSP PO PRN (21:30)
[2024-06-06 22:06] VITALS: O2SAT 100
[2024-06-06] MEDS: ACETAMINOPHEN 500 MG TABLET PO PRN (22:52)
[2024-06-06 23:37] VITALS: TEMP 98.3
== END 2024-06-06 23:55 | disposition left against medical advice (07) | DRG 637 ==
LOC: ED 13:56 → ICU 18:05
PROVIDERS: ADMIT Student in an Organized Health Care Education/Training Program; ATTEND Student in an Organized Health Care Education/Training Program

== ENCOUNTER 2024-06-28 11:40 | Inpatient (IN) ==
[2024-06-28] MEDS: KETOROLAC 15 MG/ML VIAL IV ONE (11:59)
[2024-06-28] MEDS: 0.9 % SODIUM CHLORIDE 1,000 ML IV ONE ×2 (11:59→13:29)
[2024-06-28] MEDS: ONDANSETRON 4 MG/2 ML VIAL IV ONE (11:59)
[2024-06-28 12:08] LABS: Basophils # (Auto) 0.07 K/mcL (0.00-0.30); Basophils % (Auto) 0.7 % (0.0-2.0); Eosinophils # (Auto) 0.08 K/mcL (0.00-0.70); Eosinophils % (Auto) 0.8 % (0.0-7.0); Hematocrit 50.1 % (40.1-51.0); Lymphocytes # (Auto) 2.34 K/mcL (1.50-4.80); Lymphocytes % (Auto) 22.5 % (15.5-49.0); Mean Cell Volume 96.2 fL (80.0-100.0); Mean Corpuscular HGB Conc 33.9 g/dL (31.0-36.0); Mean Platelet Volume 9.7 fL (8.8-12.5); Monocytes # (Auto) 0.67 K/mcL (0.10-0.90); Monocytes % (Auto) 6.5 % (1.0-12.0); Neutrophils % (Auto) 68.9 % (38.0-78.0); Platelet Count 298 K/mcL (140-440); RBC 5.21 M/mcL (4.63-6.08); Red Cell Distribution Width 13.3 % (11.5-14.5); WBC 10.4 K/mcL (4.5-11.0)
[2024-06-28] MEDS: INSULIN REGULAR, HUMAN 1 UNIT/0.01 ML UNIT IV ONE ×2 (12:18→13:49)
[2024-06-28 13:41] LABS: ABG Methemoglobin 0.5 % (0.4-1.5); Total Hemoglobin 19.6 gm/Dl (13.5-16.5); VBG Base Excess -19 (-2-3); VBG HCO3 7.5 mmol/L (24.0-28.0); VBG Oxygen Saturation 85.4 % (40.0-70.0); VBG PCO2 21.5 mmHg (41.0-51.0); VBG PH 7.16 U (7.32-7.42); VBG PO2 61.2 mmHg (25.0-40.0); VBG Total CO2 8.2 mmol/L (25.0-29.0)
[2024-06-28 14:33] LABS: ALT/SGPT 505 U/L (<40); AST/SGOT 124 U/L (<40); Albumin 4.6 gm/dL (3.2-5.2); Albumin/Globulin Ratio 1.2 (1.0-2.3); Alkaline Phosphatase 214 U/L (39-117); Bilirubin,Total 0.6 mg/dL (0.1-1.0); Blood Urea Nitrogen 17 mg/dL (6-20); Calcium 9.5 mg/dL (8.6-10.4); Carbon Dioxide 6 mmol/L (22-30); Chloride 92 mmol/L (96-108); Globulin 3.9 gm/dL (2.2-3.7); Glomerular Filtration Rate 98; Glucose 467 mg/dL (70-105); Potassium 5.6 mmol/L (3.3-5.1); Sodium 128 mmol/L (133-145)
[2024-06-28] MEDS: LACTATED RINGERS 1,000 ML IV SCH (15:01)
[2024-06-28] MEDS: INSULIN REGULAR, HUMAN 50 UNIT in 0.9 % SODIUM CHLORIDE 99.5 ML IV SCH (15:04)
[2024-06-28 15:23] LABS: Beta Hydroxybutyrate 0.07 mmol/L (<0.27)
[2024-06-28] MEDS ORDERED: SENNOSIDES 1 TABLET PO PRN (16:54)
[2024-06-28] MEDS ORDERED: POTASSIUM CHLORIDE 40 MEQ in DEXTROSE 5% IN WATER 500 ML IV PRN (16:54)
[2024-06-28] MEDS ORDERED: IPRATROPIUM/ALBUTEROL 3 ML AMPUL.NEB NEB PRN (16:54)
[2024-06-28] MEDS ORDERED: METOCLOPRAMIDE 10 MG/2 ML VIAL IV PRN (16:54)
[2024-06-28] MEDS ORDERED: POLYETHYLENE GLYCOL 3350 17 GM PACKET PO PRN (16:54)
[2024-06-28] MEDS ORDERED: POTASSIUM CHLORIDE 20 MEQ TABLET PO PRN ×2 (16:54)
[2024-06-28] MEDS ORDERED: MAGNESIUM SULFATE 2 GM/50 ML BAG IV PRN (16:54)
[2024-06-28] MEDS: DEXTROSE 5%-NS 1,000 ML IV SCH (17:13)
[2024-06-28 17:20] LABS: Appearance,Urine CLEAR (Clear); Bilirubin,Urine Negative (Negative); Color,Urine STRAW; Glucose,Urine (UA) >=500 mg/dL (Negative); Ketones,Urine 80 mg/dL (Negative); Leukocyte Esterase,Urine Negative /uL (Negative); Mucus,Urine FEW /hpf; Nitrate,Urine Negative (Negative); Protein,Urine Negative (Negative); Specific Gravity,Urine 1.028 (1.000-1.035); Urine Blood Negative (Negative); Urine RBC 0 /hpf (0-3); Urine Squamous Epithelial Cell 0 /hpf (0-4); Urine WBC < 1 /hpf (0-4); Urobilinogen,Urine Negative
[2024-06-28] MEDS: 0.9 % SODIUM CHLORIDE 1,000 ML IV SCH (17:20)
[2024-06-28 17:35] LABS: Hemoglobin A1C 11.8 % Hgb (4.0-6.0); Phosphorous 2.7 mg/dL (2.5-4.5)
[2024-06-28 17:52] LABS: Amphetamine Screen,Urine Suspect positive; Barbiturate Screen,Urine None detected; Benzodiazepines Screen,Urine None detected; Cannabinoid Screen,Urine None detected; Cocaine Screen,Urine None detected; Fentanyl, Urine Screen None Detected; Opiate Screen,Urine None detected; Oxycodone, Urine Screen None detected; Phencyclidine Screen,Urine None detected
[2024-06-28] MEDS: DEXTROSE 5%-1/2NS 1,000 ML IV SCH (20:05)
[2024-06-28] MEDS: 0.9 % SODIUM CHLORIDE 250 ML IV SCH (20:14)
[2024-06-28] MEDS: ONDANSETRON 4 MG/2 ML VIAL IV PRN (22:18)
[2024-06-29] MEDS: ACETAMINOPHEN 325 MG TABLET PO PRN (01:30)
[2024-06-29] MEDS: NICOTINE 21 MG PATCH TOPICAL ONE (02:17)
[2024-06-29] MEDS: NICOTINE 21 MG PATCH ONE (02:18)
[2024-06-29] MEDS: INSULIN REGULAR, HUMAN 1 UNIT/0.01 ML UNIT ONE (02:18)
[2024-06-29 06:47] LABS: ALT/SGPT 258 U/L (<40); AST/SGOT 61 U/L (<40); Albumin 3.1 gm/dL (3.2-5.2); Albumin/Globulin Ratio 1.3 (1.0-2.3); Alkaline Phosphatase 128 U/L (39-117); Bilirubin,Direct 0.2 mg/dL (<0.3); Bilirubin,Total 0.5 mg/dL (0.1-1.0); Blood Urea Nitrogen 13 mg/dL (6-20); Calcium 8.7 mg/dL (8.6-10.4); Carbon Dioxide 15 mmol/L (22-30); Chloride 101 mmol/L (96-108); Globulin 2.3 gm/dL (2.2-3.7); Glomerular Filtration Rate 111; Glucose 261 mg/dL (70-105); Lactate Dehydrogenase 137 U/L (135-225); Phosphorous 1.7 mg/dL (2.5-4.5); Potassium 3.5 mmol/L (3.3-5.1); Sodium 130 mmol/L (133-145); Triglycerides 243 mg/dL (<150); Uric Acid 5.8 mg/dL (2.5-8.0)
[2024-06-29] MEDS ORDERED: DEXTROSE 31 GM ORAL.SUSP PO PRN (07:27)
[2024-06-29] MEDS ORDERED: DEXTROSE 50% 50 ML VIAL IV PRN (07:27)
[2024-06-29] MEDS: INSULIN GLARGINE, HUMAN 1 UNIT/0.01 ML SQ SCH (07:55)
[2024-06-29] MEDS: SODIUM BICARBONATE 650 MG TABLET PO SCH (08:19)
[2024-06-29] MEDS: PHOSPHORUS 250 MG TABLET PO SCH (08:19)
[2024-06-29] MEDS: ENOXAPARIN 40 MG/0.4 ML SYRINGE SQ SCH (08:19)
[2024-06-29] MEDS: NEUTRA PHOS 1 PACKET PO SCH (08:19)
[2024-06-29] MEDS: 0.9 % SODIUM CHLORIDE 1,000 ML IV SCH (09:19)
[2024-06-29 09:52] LABS: Beta Hydroxybutyrate 1.66 mmol/L (<0.27)
[2024-06-29] MEDS: INSULIN LISPRO 1 UNIT/0.01 ML UNIT SQ SCH (10:18)
[2024-06-29] MEDS: NICOTINE 21 MG PATCH TOPICAL SCH (11:28)
[2024-06-29 17:54] LABS: ALT/SGPT 214 U/L (<40); AST/SGOT 60 U/L (<40); Albumin/Globulin Ratio 1.5 (1.0-2.3); Alkaline Phosphatase 112 U/L (39-117); Bilirubin,Direct < 0.2 mg/dL (0-0.3); Bilirubin,Total 0.3 mg/dL (0.1-1.0); Blood Urea Nitrogen 14 mg/dL (6-20); Calcium 8.3 mg/dL (8.6-10.4); Carbon Dioxide 20 mmol/L (22-30); Chloride 101 mmol/L (96-108); Glomerular Filtration Rate 116; Glucose 237 mg/dL (70-105); Lactate Dehydrogenase 157 U/L (135-225); Phosphorous 2.3 mg/dL (2.5-4.5); Potassium 3.4 mmol/L (3.3-5.1); Sodium 132 mmol/L (133-145); Triglycerides 146 mg/dL (<150); Uric Acid 3.6 mg/dL (2.5-8.0)
[2024-06-29 18:18] LABS: Beta Hydroxybutyrate 0.32 mmol/L (<0.27)
[2024-06-29 18:56] VITALS: TEMP 98; O2SAT 97
== END 2024-06-29 20:35 | disposition left against medical advice (07) | DRG 638 ==
LOC: ED 11:40 → ICU 16:50 → MEDSUR 06-29 15:44
PROVIDERS: ADMIT Internal Medicine; ATTEND Student in an Organized Health Care Education/Training Program